=== PATIENT | male | born 1965 | race Asian ===

== ENCOUNTER 2017-01-29 00:39 | Emergency (ER) | payer MEDICAID ==
[2017-01-29 00:47] VITALS: TEMP 98.2; O2SAT 96
[2017-01-29] MEDS ORDERED: IBUPROFEN 600 MG TAB PO ONE ×2 (00:55→00:58)
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
[2017-01-29 03:38] VITALS: BP 130/72; PULSE 66; RESP 16
== END 2017-01-29 03:37 | disposition home or self-care (01) ==
DX: S82.141A Displaced bicondylar fracture of right tibia, initial encounter for closed fracture (principal); V03.10XA Pedestrian on foot injured in collision with car, pick-up truck or van in traffic accident, initial encounter; Y92.410 Unspecified street and highway as the place of occurrence of the external cause
CPT/HCPCS: L1830

== ENCOUNTER 2018-06-06 10:52 | Emergency (ER) | payer MEDICAID ==
--- NOTE | 2018-06-06 11:53 | EDPHY ---
H & P Time Seen by Provider: 06/06/18 11:37 HPI/ROS: CHIEF COMPLAINT: Skin lesion on chest HISTORY OF PRESENT ILLNESS: 53-year-old male generally healthy complaining of 2 days of tender progressive lesions on his right chest and back including his axilla. No dyspnea. No exertional chest pain. No abdominal pain. No nausea or vomiting. No syncope or near syncope. No flu-like symptoms. PHYSICAL EXAM (Prior to examination, patient consented to physical exam, hands were washed and my usual and customary physical exam procedures followed) 1) GENERAL: Well-developed, well-nourished, alert and oriented. Appears to be in no acute distress. 2) HEAD: Normocephalic 3) HEENT: sclera anicteric 4) LUNGS: Breathing comfortably. Clear bilaterally. 5) SKIN: On the patient's chest axilla and back, followed dermatomal distribution he has multiple vesicular lesions consistent with zoster. [6) cardiac: Regular rate rhythm no murmur heave or gallop Smoking Status: Never smoked Constitutional: Initial Vital Signs Temperature (C) 36.7 C 06/06/18 10:56 Heart Rate 60 06/06/18 10:56 Respiratory Rate 18 06/06/18 10:56 Blood Pressure 138/100 H 06/06/18 10:56 O2 Sat (%) 95 06/06/18 10:56 O2 Delivery Mode Room Air Allergies/Adverse Reactions: No Known Allergies Allergy (Verified 06/06/18 10:55) Home Medications: Medication Instructions Recorded Acyclovir 800 mg PO 5XD #35 tab 06/06/18 Losartan Potassium 06/06/18 MDM/Departure - [facility] ED Course/Re-evaluation: The patient's exam findings are consistent with zoster. He has been symptomatic for 2 days. Will prescribe him acyclovir. Doubt cardiac or pulmonary pathology. Given my usual and customary contact precautions. He feels comfortable being discharged. I saw this patient independently based on established practice protocols. Care of patient under supervision of secondary supervising physician Dr Daniels . - Depart Disposition: Home, Routine, Self-Care Clinical Impression: Shingles Condition: Good Instructions: Shingles (ED) Additional Instructions: Seek medical attention if you develop new or worsening chest pain, if you develop new or worsening shortness of breath, or any other symptoms that concern you. Prescriptions: Acyclovir 800 mg PO 5XD #35 tab Referrals: Marianne Walton PA [Primary Care Provider] - 2-3 days, call for appt.
[2018-06-06 12:11] VITALS: BP 140/90
== END 2018-06-06 12:15 | disposition home or self-care (01) ==
DX: B02.9 Zoster without complications (principal)